=== PATIENT | female | born 1995 | race Asian ===

== ENCOUNTER 2016-04-14 14:08 | Emergency (ER) | payer OTHER ==
[2016-04-14 14:25] VITALS: BP 98/62; PULSE 75; RESP 16; TEMP 97.3; O2SAT 98
--- NOTE | 2016-04-14 15:20 | EDPHY ---
H & P Time Seen by Provider: 04/14/16 15:17 HPI/ROS: CHIEF COMPLAINT: suture removal HISTORY OF PRESENT ILLNESS: 20-year-old female presents requesting a suture removal from her scalp. Patient fell in the bathroom while in [place] 2 weeks ago and had a suture placed in her scalp, she presents for suture removal. She denies any headaches, dizziness, any other complaints. Smoking Status: Never smoked Physical Exam: GEN: Awake, alert, oriented, no acute distress RESP: nl resp effort MSK: Normal appearing SKIN: 0.5 cm healing laceration to frontal scalp with [address] with no surrounding erythema or drainage Constitutional: Initial Vital Signs Temperature (C) 36.3 C 04/14/16 14:23 Heart Rate 75 04/14/16 14:23 Respiratory Rate 16 04/14/16 14:23 Blood Pressure 98/62 L 04/14/16 14:23 O2 Sat (%) 98 04/14/16 14:23 O2 Delivery Mode Room Air Allergies/Adverse Reactions: No Known Allergies Allergy (Unverified 04/14/16 14:22) Home Medications: Medication Instructions Recorded NK [No Known Home Meds] 04/14/16 MDM/Departure - Depart Disposition: Home, Routine, Self-Care Clinical Impression: Encounter for removal of sutures Condition: Good Instructions: Stitches Removal (ED) Additional Instructions: Return to the emergency department for any questions or concerns. Referrals: Fidelina Howell MD [Medical Doctor] - Follow Up Only If Needed (primary care provider housing liaison)
== END 2016-04-14 15:20 | disposition home or self-care (01) ==
DX: Z48.02 Encounter for removal of sutures (principal)